=== PATIENT | female | born 1990 | race Caucasian/White ===

== ENCOUNTER 2017-04-12 15:25 | Emergency (ER) | payer OTHER ==
[2017-04-12 15:30] VITALS: BP 120/69; PULSE 107; TEMP 99.2; BMI 33.4
[2017-04-12] MEDS ORDERED: IBUPROFEN 400 MG TABLET (FP) PO ONE ×2 (16:28→16:29)
--- NOTE | 2017-04-12 16:34 | PDOC ---
History of Present Illness - General Chief Complaint: Sore Throat Stated Complaint: SORE THROAT AND PAIN Time Seen by Provider: 04/12/17 16:20 Exam Limitations: No Limitations - History of Present Illness Initial Comments: 04/12/17 16:31 27 yr female with 3 days sore throat no fever no cough or vomiting. no sick contacts. 04/12/17 17:07 Past History - Past Medical History Allergies/Adverse Reactions: Allergies Allergy/AdvReac Type Severity Reaction Status Date / Time No Known Allergies Allergy Verified 04/12/17 15:30 Home Medications: Ambulatory Orders NK [No Known Home Medication] 04/12/17 COPD: No Other medical history: NONE - Reproductive History (#): 1 Para: 0 Cervical CA: No Dysfunctional Uterine Bleeding: No Ectopic : No Endometrial CA: No Polycystic Ovaries: No Therapeutic (s) & number: No Tubal Ligation: No - Suicide/Smoking/Psychosocial Hx Smoking History: Never smoked Have you smoked in the past 12 months: No Hx Alcohol Use: Yes (SOCIAL) Drug/Substance Use Hx: No Substance Use Type: None Hx Substance Use Treatment: No Review of Systems - Review of Systems Able to Perform ROS?: Yes Is the patient limited Bengali proficient: No Constitutional: No: Symptoms Reported HEENTM: Yes: See HPI Respiratory: No: Symptoms reported Cardiac (ROS): No: Symptoms Reported ABD/GI: No: Symptoms Reported *Physical Exam - Vital Signs Last Vital Signs Temp Pulse Resp BP Pulse Ox 99.2 F 107 H 20 120/69 99 04/12/17 15:27 04/12/17 15:27 04/12/17 15:27 04/12/17 15:27 04/12/17 15:27 - Physical Exam General Appearance: Yes: Nourished, Appropriately Dressed HEENT: positive: EOMI, MARY JANE, TMs Normal, Tonsillar Exudate, Tonsillar Erythema Neck: negative: Tender, Lymphadenopathy (R), Lymphadenopathy (L), Rigidity, Tender lateral Respiratory/Chest: positive: Lungs Clear, Normal Breath Sounds Cardiovascular: positive: Regular Rhythm, Regular Rate Gastrointestinal/Abdominal: positive: Normal Bowel Sounds, Soft Extremity: positive: Normal Capillary Refill, Normal Inspection, Normal Range of Motion Integumentary: positive: Normal Color, Dry, Warm Neurologic: positive: Fully Oriented, Alert, Normal Mood/Affect, Normal Response , Motor Strength 5/5 Medical Decision Making - Medical Decision Making 04/12/17 16:33 cc: sore throat 4-5 days getting worse noticed white patches on tonsils no vomiting or cough will check for strep motrin for pain 04/12/17 17:01 negative strep rapid will watch for the throat culture , pt has no fever no lymphadenopathy at this time, left tonsil red with white patches. pt agrees with the plan of care and will follow with her PMD as needed, we will notify pt if the throat culture is positive. 04/12/17 17:08 *DC/Admit/Observation/Transfer Diagnosis at time of Disposition: Pharyngitis Qualifiers: Pharyngitis/tonsillitis etiology: unspecified etiology Qualified Code(s): J02.9 - Acute pharyngitis, unspecified - Discharge Dispostion Disposition: HOME Condition at time of disposition: Good - Referrals Referrals: Moon Mckenzie MD [Primary Care Provider] - - Patient Instructions Additional Instructions: gargle with warm salt water 4-5 times daily lemon or honey throat lozengers drink pleanty of fluids take ibuprofen 600-800mg every 6hrs for pain we will call you if the throat culture grows strep, however today the rapid strep is negative - Post Discharge Activity
== END 2017-04-12 17:04 | disposition home or self-care (01) ==
LOC: JERFT 15:25
DX: J02.9 Acute pharyngitis, unspecified (principal)
CPT/HCPCS: 87070; 87077; 87430; 99281-25

== ENCOUNTER 2017-10-26 09:04 | Inpatient (IN) | payer OTHER ==
[2017-10-26 09:56] LABS: URINE APPEARANCE SLCLOUDY; URINE BILIRUBIN NEGATIVE (<2.0 mg/dL); URINE COLOR YELLOW; URINE GLUCOSE (UA) NEGATIVE (NEGATIVE); URINE KETONE NEGATIVE (NEGATIVE); URINE NITRITE NEGATIVE (NEGATIVE); URINE PROTEIN NEGATIVE (NEGATIVE); URINE UROBILINOGEN NEGATIVE mg/dL (0.2-1.0)
[2017-10-26 10:04] LABS: HCG,QUALITATIVE URINE NEGATIVE
[2017-10-26 10:10] LABS: URINE LEUK ESTERASE 3+ (NEGATIVE)
[2017-10-26 10:22] LABS: EPI CELLS MODERATE /HPF (FEW); URINE MUCUS RARE
--- NOTE | 2017-10-26 10:29 | PDOC ---
History of Present Illness - General Chief Complaint: Pain Stated Complaint: CHEST PAIN, ABD PAIN Time Seen by Provider: 10/26/17 09:48 History Source: Patient - History of Present Illness Initial Comments: 10/26/17 10:41 Patient is a 27 year old female with no reported PMH who presents with abdominal pain. Intermittent sharp, roving pain that has been present for three months and has worsened over the last 2 days. Pain lasts for 2-3 minutes and symptoms are exacerbated by eating. Tolerating PO intake, no fevers, diarrhea, constipation. Denies dysuria, hematuria, increased urgency/ frequency but notes urine is dark yellow. Patient states she was evaluated at [facility] for the pain last month and was discharged with Motrin for pain. LMP was mid September 2017. NKDA Surgical: Lasik Social: denies nicotine, social alcohol, denies recreational drugs Past History - Past Medical History Allergies/Adverse Reactions: Allergies Allergy/AdvReac Type Severity Reaction Status Date / Time No Known Allergies Allergy Verified 10/26/17 09:07 Home Medications: Ambulatory Orders Acetaminophen Injection [Ofirmev Injection -] 1,000 mg IVPB Q6H PRN vial Ibuprofen Injection [Caldolor Injection -] 800 mg IVPB Q6H PRN ij 10/27/17 Ondansetron Injection [Zofran Injection] 4 mg IVPUSH Q6H PRN vial 10/27/17 Piperacillin/Tazob 4.5 gm [Zosyn -] 4.5 gm IVPB Q8H-IV vial 10/27/17 COPD: No - Reproductive History (#): 1 Para: 0 Cervical CA: No Dysfunctional Uterine Bleeding: No Ectopic : No Endometrial CA: No Polycystic Ovaries: No Therapeutic (s) & number: No Tubal Ligation: No - Immunization History Immunization Up to Date: Yes - Suicide/Smoking/Psychosocial Hx Smoking History: Never smoked Have you smoked in the past 12 months: No Hx Alcohol Use: Yes (SOCIAL) Drug/Substance Use Hx: No Substance Use Type: None Hx Substance Use Treatment: No Review of Systems - Review of Systems Constitutional: No: Chills, Fever Respiratory: No: Shortness of Breath Cardiac (ROS): No: Chest Pain, Lightheadedness, Palpitations, Syncope ABD/GI: Yes: Abdominal cramping. No: Constipated, Diarrhea, Nausea, Vomiting, Tarry Stools *Physical Exam - Vital Signs Last Vital Signs Temp Pulse Resp BP Pulse Ox 98.2 F 70 18 141/82 100 10/26/17 09:07 10/26/17 09:07 10/26/17 09:07 10/26/17 09:07 10/26/17 09:07 - Physical Exam General Appearance: Yes: Nourished, Obese Neck: positive: Trachea midline, Supple Respiratory/Chest: positive: Lungs Clear, Normal Breath Sounds Cardiovascular: positive: S1, S2. negative: JVD Gastrointestinal/Abdominal: positive: Normal Bowel Sounds, Other ((+) Arredondo's sign on PE and sonographically; RUQ TTP, epigastric TTP). negative: Hernia, Mass Musculoskeletal: negative: CVA Tenderness (R), CVA Tenderness (L) Integumentary: positive: Normal Color, Dry, Warm Neurologic: positive: Fully Oriented, Alert ED Treatment Course - LABORATORY CBC & Chemistry Diagram: 10/27/17 07:15 10/27/17 07:15 - ADDITIONAL ORDERS Additional order review: Laboratory Results 10/26/17 09:45 Urine Color Yellow Urine Appearance Slcloudy Urine pH 5.0 Ur Specific [place] 1.018 Urine Protein Negative Urine Glucose (UA) Negative Urine Ketones Negative Urine Blood Negative Urine Nitrite Negative Urine Bilirubin Negative Urine Urobilinogen Negative Ur Leukocyte Esterase 3+ H Urine WBC (Auto) 17 Urine RBC (Auto) 5 Ur Epithelial Cells Moderate Urine Mucus Rare Urine HCG, Qual Negative Medical Decision Making - Medical Decision Making 10/26/17 12:04 27 year old female presents with RUQ epigastric pain. Frontal diagnosis includes cholecystitis, biliary colic, UTI, gastritis, duodenal ulcer. Will obtain bedside U/S, CBC, CMP and administer fluids and GI cocktail. Bedside U/S showed multiple choleliths, dilated CBD. Normal sized kidneys, no hydronephrosis, non-distended bladder UA positive for 3+ Leukocyte esterase, 17 WBC. LFT's elevated (ALT 714, AST 222). Clinical suspicion for biliary tract obstruction. Case d/w General Surgery (Dr. Duran) will admit to her service for likely MRCP and cholecystectomy. Patient counseled on POC. Will continue IV fluids. *DC/Admit/Observation/Transfer Diagnosis at time of Disposition: Cholelithiasis - Discharge Dispostion Disposition: TRANSFER ACUTE CARE/OTHER HOSP Condition at time of disposition: Stable - Referrals - Patient Instructions - Post Discharge Activity
[2017-10-26 11:04] LABS: BASO % 0.6 % (0-2.0); EOS % 0.3 % (0-4.5); HEMATOCRIT 41.9 % (32.4-45.2); HEMOGLOBIN 13.9 GM/dL (10.7-15.3); LYMPH % 17.9 % (8-40); MCH 29.5 pg (25.7-33.7); MCHC 33.2 g/dl (32.0-36.0); MEAN CELL VOLUME 88.8 fl (80-96); MEAN PLT VOLUME 9.6 fl (7.5-11.1); MONO % 5.5 % (3.8-10.2); NEUT % 75.7 % (42.8-82.8); PLATELET COUNT 231 K/MM3 (134-434); RBC 4.72 M/mm3 (3.60-5.2); WHITE BLOOD COUNT 8.8 K/mm3 (4.0-10.0)
[2017-10-26 11:32] LABS: ALBUMIN 3.8 g/dl (3.4-5.0); ANION GAP 9 (8-16); BILIRUBIN,TOTAL 0.6 mg/dL (0.2-1.0); BLOOD UREA NITROGEN 8 mg/dL (7-18); CALCIUM 8.9 mg/dL (8.5-10.1); CHLORIDE 105 mmol/L (98-107); CO2 23 mmol/L (21-32); CREATININE 0.6 mg/dL (0.55-1.02); GLUCOSE,RANDOM 82 mg/dL (74-106); LIPASE 183 U/L (73-393); SODIUM 137 mmol/L (136-145); TOT PROT 7.5 g/dl (6.4-8.2)
[2017-10-26 11:33] LABS: ALK PHOS 218 U/L (45-117)
--- NOTE | 2017-10-26 11:54 | PDOC ---
Attending Attestation - Resident Resident Name: he he had - ED Attending Attestation I have performed the following: I have examined & evaluated the patient, The case was reviewed & discussed with the resident, I agree w/resident's findings & plan, Exceptions are as noted - HPI HPI: 10/26/17 11:46 27-year-old female no past medical history here today complaining of intermittent abdominal pain. Patient states symptoms are worse with eating describes epigastric and sometimes left upper quadrant pain also previously had some right upper quadrant pain. Pain is sharp and intermittent no assisted nausea vomiting no fevers no chills no urinary complaints. Since she does have a family history of a sister with gallstones has been having pain for 3 months but became more severe today - Physicial Exam PE: 10/26/17 11:58 Awake alert no acute distress. Lungs are clear bilaterally. Heart is regular without any murmurs rubs or gallops. Abdomen is soft mild epigastric tenderness no rebound no guarding negative Arredondo's negative CVA tenderness extremities are warm and well-perfused skin is warm and dry no rash neurologically patient is alert oriented 3 moves all extremities facies symmetric - Medical Decision Making 10/26/17 11:59 Differential diagnosis includes biliary colic gastritis duodenal ulcer or duodenitis pancreatitis UTI renal colic plan and basic labs LFTs lipase urinalysis UCG we'll perform a bedside ultrasound the gallbladder and kidneys to evaluate for hydronephrosis and/or gallstones treat patient with IV fluids and Pepcid and reassessment following 10/26/17 12:04 focused ED ultrasound RUQ, indication epigastric pain gb scanned in two planes using curvilinear probe. noted large stones in the fundus, multiple stones, largest measuring 1.5 cm. mobile no wall thickening or edema. negative sonographic arredondo's. no pericholecystic fluid CBD dilated at 7.0 mm proximally wall measured 1.2 mm impressions: dilated CBD, cholelithiasis. cirilli/ sarah focused ED ultrasound renal, indication: abdominal pain bilateral kidneys scanned in two planes. hyperechoic focus noted in right kindy cortex, possible stone. no hydronephrosis noted. right kidney measured 12.2 cm left kidney measured 10.5 cm bladder nondistended. impression: normal renal ultrasound. Heart Score/ECG Review #1 General ECG Interpretation: Sinus Rhythm, Normal Rate (50), Normal Intervals (e' ll of yet.), No acute ischemic changes
[2017-10-26 11:57] LABS: SGPT/ALT 714 U/L (12-78)
[2017-10-26 11:58] LABS: POTASSIUM 4.6 mmol/L (3.5-5.1); SGOT/AST 222 U/L (15-37)
[2017-10-26] MEDS ORDERED: FAMOTIDINE 20 MG/50 ML IVPB 20 MG/50 ML MG IVPB ONE ×2 (12:00→12:03)
[2017-10-26] MEDS ORDERED: SODIUM CHLORIDE 0.9% 1000 ML INFUS.BAG IV ONE (12:01)
[2017-10-26] MEDS: SODIUM CHLORIDE 1,000 ML IV SCH (13:09)
[2017-10-26 13:43] LABS: INR 1.12 (0.82-1.09); PROTHROMBIN TIME (PATIENT) 12.6 SEC (9.7-13.0)
[2017-10-26 13:45] LABS: ACTIVATED PTT 26.4 SECONDS (25.2-36.5)
--- NOTE | 2017-10-26 14:04 | HP ---
Admitting History and Physical - Primary Care Physician PCP: Moon Mckenzie - Admission Chief Complaint: upper abdominal pain, nausea History of Present Illness: 27yo obese but otherwise healthy F with h/o migraines and LASIK eye surgery presents with ~3month history of upper abdominal pain occurring mostly after fatty/greasy meals. It starts usually under left breast, radiates to epigastric area and around to right and also to her back, lasting minutes more often than not. She has had a few episodes that began in the RUQ, and Thursday had the worst pain yet lasting at least an hour. She has nausea associated but has not vomited, and her urine has been dark yellow lately. No constipation or diarrhea , no fever or chills, no jaundice. She was seen recently at [facility] ER about 3 weeks ago for similar pain, and they told her she had "inflammation" in her breastbone or upper abdomen, and advised Motrin prn. Motrin has helped at least once with the pain. Her sister recently had her gallbladder out and had what sounds like a retained stone requiring additional intervention at [facility]. In the ER, wbc is normal, she is afebrile, and LFTs are elevated but not bilirubin or lipase. US shows multiple stones in gallbladder without overt signs of cholecystitis, but cbd is dilated at 5mm (on formal US images)/7mm (on ER's bedside study). She is seen in the ER, able to ambulate, has not required pain medication, and has gotten IV fluids and famotidine. Last po was 8:30 pm last night and a sip of water this morning. 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 Loss Eyes: denies: Blurred Vision, Recent Change in Vision HENT: denies: Difficult Swallowing, Nasal Congestion, Throat Pain Neck: denies: Swollen Glands, Tenderness Cardiovascular: denies: Chest Pain (some radiation from epigastric pain but not primary chest pain), Palpitations Respiratory: reports: SOB (some difficulty with breathing secondary to pain in last few months). denies: Cough Gastrointestinal: reports: Abdominal Pain (with hpi), Nausea (with hpi). denies : Constipation, Diarrhea, Vomiting Genitourinary: denies: Burning, Dysuria Musculoskeletal: reports: Back Pain. denies: Joint Pain, Muscle Pain Integumentary: denies: Change in Color, Rash Neurological: reports: Headache (less with good water intake but prone to migraines). denies: Dizziness, Unsteady Gait Endocrine: denies: Unexplained Weight Gain, Unexplained Weight Loss Psychiatric: denies: Anxiety, Depression Physical Examination Vital Signs: Vital Signs Temperature 98.2 F 10/26/17 09:07 Pulse Rate 70 10/26/17 09:07 Respiratory Rate 18 10/26/17 09:07 Blood Pressure 141/82 10/26/17 09:07 O2 Sat by Pulse Oximetry (%) 100 10/26/17 09:07 Constitutional: Yes: No Distress, Calm, Obese Eyes: Yes: Conjunctiva Clear, EOM Intact. No: Sclera Icterus HENT: Yes: Atraumatic, Normocephalic Neck: Yes: Supple, Trachea Midline Cardiovascular: Yes: Regular Rate and Rhythm. No: Murmur Respiratory: Yes: Regular, CTA Bilaterally Gastrointestinal: Yes: Normal Bowel Sounds, Soft, Abdomen, Obese, Tenderness ( RUQ with Arredondo's, epigastric, less LUQ - no leslee/guard), Tenderness, Epigastrium. No: Tenderness, Rebound ...Rectal Exam: Yes: Deferred Renal/: Yes: CVA Tenderness - Left (mild), CVA Tenderness - Right (mild) Musculoskeletal: No: Back Pain (no direct tenderness), Joint Stiffness, Joint Swelling Extremities: No: Cool, Cyanosis Edema: No Peripheral Pulses WNL: Yes Integumentary: Yes: Tattoos. No: Jaundice, Rash Neurological: Yes: Alert, Oriented. No: Unsteady Gait Labs: CBC, BMP 10/26/17 10:50 10/26/17 10:50 CMP Sodium 137 mmol/L (136-145) 10/26/17 10:50 Potassium 4.6 mmol/L (3.5-5.1) 10/26/17 10:50 Chloride 105 mmol/L (98-107) 10/26/17 10:50 Carbon Dioxide 23 mmol/L (21-32) 10/26/17 10:50 Anion Gap 9 (8-16) 10/26/17 10:50 BUN 8 mg/dL (7-18) 10/26/17 10:50 Creatinine 0.6 mg/dL (0.55-1.02) 10/26/17 10:50 Creat Clearance w eGFR > 60 (>60) 10/26/17 10:50 Random Glucose 82 mg/dL (74-106) 10/26/17 10:50 Calcium 8.9 mg/dL (8.5-10.1) 10/26/17 10:50 Total Bilirubin 0.6 mg/dL (0.2-1.0) 10/26/17 10:50 AST 222 U/L (15-37) H 10/26/17 10:50 ALT 714 U/L (12-78) H 10/26/17 10:50 Alkaline Phosphatase 218 U/L (45-117) H 10/26/17 10:50 Total Protein 7.5 g/dl (6.4-8.2) 10/26/17 10:50 Albumin 3.8 g/dl (3.4-5.0) 10/26/17 10:50 Lipase 183 U/L (73-393) 10/26/17 10:50 INR, PTT INR 1.12 (0.82-1.09) 10/26/17 13:10 Urine Test Results Urine Color Yellow 10/26/17 09:45 Urine Appearance Slcloudy 10/26/17 09:45 Urine pH 5.0 (5.0-8.0) 10/26/17 09:45 Ur Specific [place] 1.018 (1.001-1.035) 10/26/17 09:45 Urine Protein Negative (NEGATIVE) 10/26/17 09:45 Urine Glucose (UA) Negative (NEGATIVE) 10/26/17 09:45 Urine Ketones Negative (NEGATIVE) 10/26/17 09:45 Urine Blood Negative (NEGATIVE) 10/26/17 09:45 Urine Nitrite Negative (NEGATIVE) 10/26/17 09:45 Urine Bilirubin Negative (<2.0 mg/dL) 10/26/17 09:45 Ur Leukocyte Esterase 3+ (NEGATIVE) H 10/26/17 09:45 Ur Epithelial Cells Moderate /HPF (FEW) 10/26/17 09:45 Urine Mucus Rare 10/26/17 09:45 Imaging - Results Ultrasound: Image Reviewed (images personally reviewed - multiple gallstones, wall thickness ~0.2cm, no pericholecystic fluid, cbd at least 5mm proximally) MRI: Pending Problem List - Problems (1) Calculus of gallbladder without cholecystitis without obstruction Assessment/Plan: biliary colic with elevated LFTs, possible chronic cholecystitis admit to surgery NPO/IVF pain meds prn, encourage nonnarcotics no antibiotics yet MRCP pending trend labs in am GI/DVT prophylaxis if MRCP positive - will consult GI for ERCP if not, if labs improved in am, recommend laparoscopic possible open cholecystectomy - Discussed with patient risks, benefits and alternatives of laparoscopic possible open cholecystectomy, including but not limited to bleeding, infection , injury to adjacent structures, bile leak or ductal injury, intraabdominal abscess, hernia, need for further procedures, ; alternatives include low- fat diet, delayed or no surgery - risks of this include recurrence of biliary colic, cholecystitis, pancreatitis, cholangitis. Patient agreeable to operation once cbd has been shown to be clear. Will plan possible OR for tomorrow pending MRCP results and labs in am. Informed consent signed for same. Perioperative antibiotics as indicated Pt anticipated to spend at least 2 midnights in hospital. Code(s): K80.20 - CALCULUS OF GALLBLADDER W/O CHOLECYSTITIS W/O OBSTRUCTION (2) Upper abdominal pain Code(s): R10.10 - UPPER ABDOMINAL PAIN, UNSPECIFIED (3) Nausea alone Code(s): R11.0 - NAUSEA (4) Obesity Code(s): E66.9 - OBESITY, UNSPECIFIED Qualifiers: Obesity type: due to excess calories Obesity classification: adult class 1 (BMI 30 - 34.9) Serious obesity comorbidity presence: without serious comorbidity Body mass index: BMI 32.0-32.9 Qualified Code(s): E66.09 - Other obesity due to excess calories; Z68.32 - Body mass index (BMI) 32.0-32.9, adult
[2017-10-26] MEDS ORDERED: ACETAMINOPHEN 325 MG TABLET (FP) PO PRN (14:20)
[2017-10-26] MEDS ORDERED: IBUPROFEN 400 MG TABLET (FP) PO PRN (14:20)
[2017-10-26] MEDS ORDERED: ONDANSETRON 4 MG/2 ML VIAL IVPUSH PRN (14:23)
[2017-10-26 17:04] VITALS: BMI 42.0
[2017-10-26] MEDS ORDERED: PIPERACILLIN/TAZOB 4.5 GM 4.5 GM in DEXTROSE 5%-WATER 100 ML IVPB SCH (20:30)
[2017-10-26] MEDS ORDERED: DEXTROSE 5%-WATER 100 ML IVPB ONE (21:12)
[2017-10-26] MEDS ORDERED: PIPERACILLIN/TAZOBACTAM 4.5 GM VIAL IVPB ONE (21:12)
[2017-10-26] MEDS: FAMOTIDINE 20 MG/50 ML IVPB 20 MG/50 ML MG IVPB SCH (21:24)
[2017-10-26] MEDS: PIPERACILLIN/TAZOB 4.5 GM 4.5 GM in DEXTROSE 5%-WATER 100 ML IVPB SCH (21:24)
[2017-10-27] MEDS: SODIUM CHLORIDE 1,000 ML IV SCH (00:27)
[2017-10-27] MEDS ORDERED: PIPERACILLIN/TAZOBACTAM 4.5 GM VIAL IVPB ONE ×2 (02:11→09:06)
[2017-10-27] MEDS ORDERED: DEXTROSE 5%-WATER 100 ML IVPB ONE ×2 (02:11→09:06)
[2017-10-27] MEDS: PIPERACILLIN/TAZOB 4.5 GM 4.5 GM in DEXTROSE 5%-WATER 100 ML IVPB SCH ×2 (02:19→09:11)
[2017-10-27 07:55] LABS: BASO % 0.4 % (0-2.0); EOS % 0.4 % (0-4.5); HEMATOCRIT 38.9 % (32.4-45.2); HEMOGLOBIN 13.1 GM/dL (10.7-15.3); MCH 29.9 pg (25.7-33.7); MCHC 33.8 g/dl (32.0-36.0); MEAN CELL VOLUME 88.3 fl (80-96); MEAN PLT VOLUME 9.5 fl (7.5-11.1); MONO % 5.8 % (3.8-10.2); NEUT % 64.4 % (42.8-82.8); PLATELET COUNT 194 K/MM3 (134-434); RDW 13.6 % (11.6-15.6); WHITE BLOOD COUNT 8.5 K/mm3 (4.0-10.0)
[2017-10-27 08:33] LABS: CHLORIDE 105 mmol/L (98-107); POTASSIUM 4.1 mmol/L (3.5-5.1); SODIUM 142 mmol/L (136-145)
--- NOTE | 2017-10-27 08:35 | CON.GI ---
Consult Consult Specialty:: Gastroenterology Referred by:: Dr. Zenaida Duran Reason for Consultation:: Abdominal pain - History of Present Illness Chief Complaint: Recurring abdominal pain History of Present Illness: 27F has been having left subcostal colicky pain for several weeks intermittently , typically triggered by fatty foods. She had a particularly severe episode on which resolved with Motrin. It recurred yesterday prompting her to come to the ER. Sonogram reveals GB stones and MRCP confirms CBD stones. Her mother and sister had GB surgeries. She denies liver disease and pancreatitis. 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 History of Recent Travel: No Home Medications - Allergies Allergies/Adverse Reactions: Allergies Allergy/AdvReac Type Severity Reaction Status Date / Time No Known Allergies Allergy Verified 10/26/17 09:07 - Home Medications Home Medications: Ambulatory Orders NK [No Known Home Medication] 04/12/17 Family Disease History - Family Disease History Family Disease History: Diabetes: Father (prostate camcer), Mother (recent CVA) , Heart Disease: Mother, CA: Father, Other: Mother, Sister (GB surgery) Review of Systems - Review of Systems Constitutional: reports: No Symptoms Eyes: reports: No Symptoms HENT: reports: No Symptoms Neck: reports: No Symptoms Cardiovascular: reports: No Symptoms Respiratory: reports: No Symptoms Gastrointestinal: reports: Abdominal Pain Musculoskeletal: reports: Back Pain Integumentary: reports: No Symptoms Neurological: reports: No Symptoms Endocrine: reports: No Symptoms Hematology/Lymphatic: reports: No Symptoms Physical Exam-GI Vital Signs: Vital Signs Temperature 97.6 F 10/27/17 05:54 Pulse Rate 65 10/27/17 05:54 Respiratory Rate 18 10/27/17 05:54 Blood Pressure 113/52 10/27/17 05:54 O2 Sat by Pulse Oximetry (%) 100 07/02/18 22:00 CBC,CMP WBC 8.5 K/mm3 (4.0-10.0) 10/27/17 07:15 RBC 4.40 M/mm3 (3.60-5.2) 10/27/17 07:15 Hgb 13.1 GM/dL (10.7-15.3) 10/27/17 07:15 Hct 38.9 % (32.4-45.2) 10/27/17 07:15 MCV 88.3 fl (80-96) 10/27/17 07:15 MCH 29.9 pg (25.7-33.7) 10/27/17 07:15 MCHC 33.8 g/dl (32.0-36.0) 10/27/17 07:15 RDW 13.6 % (11.6-15.6) 10/27/17 07:15 Plt Count 194 K/MM3 (134-434) 10/27/17 07:15 MPV 9.5 fl (7.5-11.1) 10/27/17 07:15 Absolute Neuts (auto) 5.5 # 10/27/17 07:15 Neutrophils % 64.4 % (42.8-82.8) 10/27/17 07:15 Lymphocytes % 29.0 % (8-40) D 10/27/17 07:15 Monocytes % 5.8 % (3.8-10.2) 10/27/17 07:15 Eosinophils % 0.4 % (0-4.5) 10/27/17 07:15 Basophils % 0.4 % (0-2.0) 10/27/17 07:15 Nucleated RBC % 0 % (0-0) 10/27/17 07:15 Sodium 142 mmol/L (136-145) 10/27/17 07:15 Potassium 4.1 mmol/L (3.5-5.1) 10/27/17 07:15 Chloride 105 mmol/L (98-107) 10/27/17 07:15 Carbon Dioxide 23 mmol/L (21-32) 10/27/17 07:15 Anion Gap 14 (8-16) 10/27/17 07:15 BUN 6 mg/dL (7-18) L 10/27/17 07:15 Creatinine 0.7 mg/dL (0.55-1.02) 10/27/17 07:15 Creat Clearance w eGFR > 60 (>60) 10/27/17 07:15 Random Glucose 68 mg/dL (74-106) L 10/27/17 07:15 Calcium 8.3 mg/dL (8.5-10.1) L 10/27/17 07:15 Total Bilirubin 0.9 mg/dL (0.2-1.0) 10/27/17 07:15 AST 94 U/L (15-37) H 10/27/17 07:15 ALT 467 U/L (12-78) H 10/27/17 07:15 Alkaline Phosphatase 169 U/L (45-117) H D 10/27/17 07:15 Total Protein 6.7 g/dl (6.4-8.2) 10/27/17 07:15 Albumin 3.4 g/dl (3.4-5.0) 10/27/17 07:15 Lipase 233 U/L (73-393) 10/27/17 07:15 Current Medications Generic Name Dose Route Start Last Admin Trade Name Freq PRN Reason Stop Dose Admin Acetaminophen 650 mg 10/26/17 14:20 Tylenol - PO Q6H PRN Pain Level 4 - 10 Sodium Chloride 1,000 mls @ 125 mls/hr 10/26/17 12:45 10/27/17 00:27 Normal Saline - IV 125 mls/hr ASDIR AGUILAR Administration Famotidine/Sodium Chloride 20 mg in 50 mls @ 100 mls/hr 10/26/17 22:00 21:24 Pepcid 20 Mg Premixed Ivpb - IVPB 100 mls/hr BID AGUILAR Administration Piperacillin Sod/Tazobactam 100 mls @ 200 mls/hr 10/26/17 21:15 10/27/17 02: 19 Sod 4.5 gm/ Dextrose IVPB 200 mls/hr Q8H-IV AGUILAR Administration Protocol Ibuprofen 400 mg 10/26/17 14:20 Motrin - PO Q6H PRN Pain Level 7 - 10 SECOND LINE Ondansetron HCl 4 mg 10/26/17 14:23 Zofran Injection IVPUSH Q6H PRN NAUSEA Constitutional: Yes: Well Nourished Eyes: Yes: Conjunctiva Clear HENT: Yes: Atraumatic Neck: Yes: Supple Cardiovascular: Yes: Regular Rate and Rhythm Respiratory: Yes: CTA Bilaterally ...Auscultate: Yes: Normoactive Bowel Sounds ...Palpate: Yes: Soft, Tenderness (mild epigastric tenderness) ...Rectal Exam: Yes: Deferred Edema: No Peripheral Pulses WNL: Yes Neurological: Yes: Alert, Oriented Labs: CBC, BMP 10/27/17 07:15 INR, PTT INR 1.12 (0.82-1.09) 10/26/17 13:10 Imaging - Results MRI: Report Reviewed (Tatyana Blake Name: PAULINA YEN DEPARTMENT OF RADIOLOGY Phys: Chidi Duran MD : 1990 Age: 27 Sex: F [facility] Acct: [id number] Loc: [id number] [facility] Exam Date: 10/26/17 Status: [place] [address] Unit Number: [id number] EXAM#: TYPE/EXAM: RESULT: [id number] MRI/ABDOMEN MRI W/O CONTRAST /MRCP MRI OF THE ABDOMEN WITHOUT IV GADOLINIUM WITH MRCP HISTORY: 27-year-old female with gallstones and increasing LFTs TECHNIQUE: Multiplanar multisequential MRI of the abdomen without the intravenous administration of contrast were performed on a high field 1.5 Vannesa GE magnet. Axial and coronal T2 fat-sat, axial T1 (in and out of phase), axial T2 FIESTA, axial T1 fat sat - LAVA without contrast in addition to coronal LAVA and axial diffusion weighted images were performed. Axial and coronal thin and thick slab 3 D MRCP was performed. No comparison MRI is available. Correlation is made with percent of the abdomen dated October 26, 2017. FINDINGS: The visualized lung bases inferior mediastinum are unremarkable. The liver is normal in size with no evidence of abnormal loss of signal on out of phase imaging to suggest fatty infiltration. There is no evidence of abnormal focal signal abnormality The spleen is normal in size with no evidence of focal abnormal signal. The pancreas is homogeneous in signal with no focal signal abnormality. The pancreatic duct is nondilated. The gallbladder is distended and filled with numerous stones. There is no abnormal gallbladder wall thickening or surrounding edema. There are numerous filling defects in the CBD but with no CBD dilatation. There is mild intrahepatic biliary ductal dilatation. The adrenal glands are unremarkable. There is no focal renal signal abnormality. There is no hydronephrosis. There is no evidence of abdominal lymphadenopathy or abdominal ascites. There is no evidence of abnormally dilated bowel loops. The visualized osseous structures are grossly unremarkable. IMPRESSION: Cholelithiasis and choledocholithiasis with no MRI evidence of cholecystitis. Reported By: Cristo Maxwell MD 06/14 Technologist: Benjamin Richardson Transcribed Date/Time: 1644 Cheese Grader: Cristo Maxwell Printed Date/Time: By: Signed by: Cristo Maxwell Signed on: 26-Oct-2017 16:46) Problem List - Problems (1) Calculus of gallbladder and bile duct w/o cholecystitis or obstruction Assessment/Plan: Paulina's pain is entirely consistent with biliary colic due to stones in the CBD. I have advised that she undergo an ERCP with sphincterotomy to extract the stones or place a stent if I can't remove them. I have informed her of the potential for such complications as perforation, hemorrhage and multiorgan failure that can arise as a result of ERCP induced pancreatitis. She has granted an informed consent. I will do it today and give an Indocin suppository to help protect against pancreatitis. I communicated with Dr Duran. Paulina understands that she will need a cholecystectomy and potentially a repeat ERCP. Code(s): K80.70 - CALCULUS OF GB AND BILE DUCT W/O CHOLECYST W/O OBSTRUCTION (2) Upper abdominal pain Code(s): R10.10 - UPPER ABDOMINAL PAIN, UNSPECIFIED
[2017-10-27 08:47] LABS: ALBUMIN 3.4 g/dl (3.4-5.0); ALK PHOS 169 U/L (45-117); ANION GAP 14 (8-16); BILIRUBIN,TOTAL 0.9 mg/dL (0.2-1.0); BLOOD UREA NITROGEN 6 mg/dL (7-18); CALCIUM 8.3 mg/dL (8.5-10.1); CO2 23 mmol/L (21-32); CREATININE 0.7 mg/dL (0.55-1.02); GLUCOSE,RANDOM 68 mg/dL (74-106); LIPASE 233 U/L (73-393); SGOT/AST 94 U/L (15-37); SGPT/ALT 467 U/L (12-78); TOT PROT 6.7 g/dl (6.4-8.2)
[2017-10-27] MEDS ORDERED: LACTATED RINGERS SOLUTION 1,000 ML/1,000 ML INFUS.BAG IV SCH ×3 (09:00→20:00)
[2017-10-27] MEDS: FAMOTIDINE 20 MG/50 ML IVPB 20 MG/50 ML MG IVPB SCH (09:10)
[2017-10-27 09:25] VITALS: TEMP 98.1
[2017-10-27] MEDS ORDERED: INDOMETHACIN 50 MG RECTAL SUPPOSITORY PR ONE (10:00)
[2017-10-27] MEDS ORDERED: LIDOCAINE HCL 2% (20ML MULTI-DOSE VIAL) NR ONE (11:23)
[2017-10-27] MEDS ORDERED: SUCCINYLCHOLINE CHLORIDE 200 MG/10 ML VIAL ONE (11:23)
[2017-10-27] MEDS ORDERED: PROPOFOL 20 ML ONE (11:23)
[2017-10-27] MEDS ORDERED: MIDAZOLAM HCL 2 MG/2 ML SINGLE DOSE VIAL ONE (11:24)
[2017-10-27] MEDS ORDERED: GLUCAGON 1 MG KIT ONE (12:33)
[2017-10-27] MEDS ORDERED: GLUCAGON 1 MG KIT IVPUSH ONE (12:34)
[2017-10-27] MEDS ORDERED: KETOROLAC TROMETHAMINE 30 MG/1 ML VIAL IVPUSH ONE (13:28)
--- NOTE | 2017-10-27 13:28 | PN ---
Progress Note (short form) - Note Progress Note: GI procedure note: please see scanned ERCP note. Attempts to cannulate common bile duct were unsuccessful despite attempting with a precut sphincterotomy. I've informed the patient of this and have proposed transfer to a tertiary care center, more specifically, to [facility] with Dr. Cj Leung. I have discussed the case with Dr. Leung who is agreeable to accept the patient in transfer, the patient also agrees. Discussed with Dr. Duran who is in agreement. Problem List - Problems (1) Calculus of gallbladder and bile duct w/o cholecystitis or obstruction Code(s): K80.70 - CALCULUS OF GB AND BILE DUCT W/O CHOLECYST W/O OBSTRUCTION (2) Upper abdominal pain Code(s): R10.10 - UPPER ABDOMINAL PAIN, UNSPECIFIED
[2017-10-27] MEDS ORDERED: HYDROmorphone HCL CARPU-JECT 2 MG/1 ML DISP.SYRIN IVPB PRN (13:30)
[2017-10-27 13:48] VITALS: BP 124/86; PULSE 80
--- NOTE | 2017-10-27 14:21 | DS ---
Physical Examination Vital Signs: Vital Signs Temperature 98.1 F 10/27/17 13:00 Pulse Rate 80 10/27/17 13:50 Respiratory Rate 15 10/27/17 13:50 Blood Pressure 124/86 10/27/17 13:50 O2 Sat by Pulse Oximetry (%) 100 10/27/17 13:50 Findings/Remarks: Pt seen and examined in endoscopy recovery, awake and tearful, nervous about need for transfer. She has multiple CBD stones by MRCP, and GI attempted ERCP this morning with multiple attempts but failed to cannulate bile duct successfully. Dr. Thompson has spoken with Dr. Leung at [facility], who accepts her in transfer for further attempts to clear CBD. Pt is in agreement, but is not sure if she will want to stay there for cholecystectomy after or return to [facility] for surgery once bile duct has been cleared. She is waiting on family to arrive to discuss. Prior to ERCP, she had no pain or nausea, was feeling okay. Post-procedure, she has a mild sore throat and some epigastric pain. Constitutional: Yes: No Distress, Anxious, Obese Eyes: Yes: Conjunctiva Clear, EOM Intact. No: Sclera Icterus HENT: Yes: Atraumatic, Normocephalic Neck: Yes: Supple, Trachea Midline Cardiovascular: Yes: Regular Rate and Rhythm. No: Murmur Respiratory: Yes: Regular, CTA Bilaterally Gastrointestinal: Yes: Normal Bowel Sounds, Soft, Abdomen, Obese, Tenderness, Epigastrium (mild). No: Tenderness, Rebound ...Rectal Exam: Yes: Deferred Musculoskeletal: No: Joint Stiffness, Joint Swelling Extremities: No: Cool, Cyanosis Integumentary: No: Jaundice, Rash Neurological: Yes: Alert, Oriented Labs: CBC, BMP 10/27/17 07:15 10/27/17 07:15 CMP Sodium 142 mmol/L (136-145) 10/27/17 07:15 Potassium 4.1 mmol/L (3.5-5.1) 10/27/17 07:15 Chloride 105 mmol/L (98-107) 10/27/17 07:15 Carbon Dioxide 23 mmol/L (21-32) 10/27/17 07:15 Anion Gap 14 (8-16) 10/27/17 07:15 BUN 6 mg/dL (7-18) L 10/27/17 07:15 Creatinine 0.7 mg/dL (0.55-1.02) 10/27/17 07:15 Creat Clearance w eGFR > 60 (>60) 10/27/17 07:15 Random Glucose 68 mg/dL (74-106) L 10/27/17 07:15 Calcium 8.3 mg/dL (8.5-10.1) L 10/27/17 07:15 Total Bilirubin 0.9 mg/dL (0.2-1.0) 10/27/17 07:15 AST 94 U/L (15-37) H 10/27/17 07:15 ALT 467 U/L (12-78) H 10/27/17 07:15 Alkaline Phosphatase 169 U/L (45-117) H D 10/27/17 07:15 Total Protein 6.7 g/dl (6.4-8.2) 10/27/17 07:15 Albumin 3.4 g/dl (3.4-5.0) 10/27/17 07:15 Lipase 233 U/L (73-393) 10/27/17 07:15 LFTs coming down some, lipase up a bit but still in normal range, wbc normal Discharge Summary Reason For Visit: symptomatic cholelithiasis, choledocholithiasis Current Active Problems Calculus of gallbladder and bile duct w/o cholecystitis or obstruction (Acute) Nausea alone (Acute) Obesity (Acute) Upper abdominal pain (Acute) Procedures: Principal: ERCP with failure to cannulate bile duct Hospital Course: 27yo obese F with no significant medical history, admitted to surgical service through ER for symptomatic cholelithiasis (months worth of intermittent pain), last seen in ER in May for similar symptoms but did not follow up with surgeon outpatient. In ER, she was afebrile with normal wbc, lipase and LFTs were elevated except for bilirubin. US showed multiple gallstones and dilated CBD; MRCP then showed multiple CBD stones, but neither suggested acute cholecystitis. She was NPO and given IV fluids. Antibiotics were started only after MRCP results, and GI took her for ERCP this morning, but was unable to cannulate bile duct after multiple attempts. Dr. Thompson spoke with Dr. Cj Leung at [facility], who agreed to take her in transfer for further GI intervention to clear her duct. She is stable post-procedure, awake and alert, but anxious about need for transfer. She is medically stable for transfer to [facility], going to bed [facility] [id number]. Once duct is cleared, Dr. Duran is willing to take her back to [facility] for laparoscopic possible open cholecystectomy , if patient so desires. Time spent on discharge: 45 minutes Condition: Stable - Instructions Diet, Activity, Other Instructions: You were treated with antibiotics, IV fluids and bowel rest for symptomatic gallstones and common bile duct stones. ERCP was attempted by Dr. Thompson from , but he was unable to access the bile duct to remove the stones. You are being transferred to [facility], for Dr. Cj Leung () to pursue interventions to clear the bile duct prior to recommended laparoscopic possible open cholecystectomy. If you return to [facility] for surgery after your bile duct is cleared, Dr. Chidi Duran of [facility] will readmit you and proceed with treatment. You will need to follow up with Dr. Mckenzie, your primary doctor, within 1-2 weeks of your ultimate discharge from the hospital. Make sure to call for all appointments as directed. Referrals: Moon Mckenzie MD [Primary Care Provider] - Disposition: TRANSFER ACUTE CARE/OTHER HOSP - Home Medications Comprehensive Discharge Medication List: Ambulatory Orders NK [No Known Home Medication] 04/12/17 Hospital Medications Medication Instructions Recorded Acetaminophen Injection [Ofirmev 1,000 mg IVPB Q6H PRN vial 10/27/17 Injection -] Ibuprofen Injection [Caldolor 800 mg IVPB Q6H PRN ij 10/27/17 Injection -] Ondansetron Injection [Zofran 4 mg IVPUSH Q6H PRN vial 10/27/17 Injection] Piperacillin/Tazob 4.5 gm [Zosyn -] 4.5 gm IVPB Q8H-IV vial due at 6p, 2a, 10a 10/27/17 Lactated Ringers Solution 1,000 ml IV ASDIR infus.bag at 150ml/hr 10/27/17 ALSO: Famotidine 20mg IVPB BID
--- NOTE | 2017-10-27 14:31 | CON.ID ---
Consult Consult Specialty:: infectious diseases Referred by:: dr lua Reason for Consultation:: choleycystitis,cbd stone - History of Present Illness Chief Complaint: abd pain History of Present Illness: 27yo obese but otherwise healthy F with h/o migraines and LASIK eye surgery presents admitted because with ~3month history of upper abdominal pain occurring mostly after fatty/greasy meals. It starts usually under left breast, radiates to epigastric area and around to right and also to her back, lasting minutes more often than not. 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 Hepatobiliary: Yes: Cholelithiasis, Choledocholithiasis ...LMP: 10/10/17 ...: No Musculoskeletal: Yes: Chronic low back pain - Past Surgical History Past Surgical History: Yes: None - Alcohol/Substance Use Hx Alcohol Use: Yes (SOCIAL) History of Substance Use: reports: None - Smoking History Smoking history: Never smoked Have you smoked in the past 12 months: No - Social History ADL: Independent 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 History of Recent Travel: No Home Medications - Allergies Allergies/Adverse Reactions: Allergies Allergy/AdvReac Type Severity Reaction Status Date / Time No Known Allergies Allergy Verified 10/26/17 09:07 - Home Medications Home Medications: Ambulatory Orders Acetaminophen Injection [Ofirmev Injection -] 1,000 mg IVPB Q6H PRN vial Ibuprofen Injection [Caldolor Injection -] 800 mg IVPB Q6H PRN ij 10/27/17 Ondansetron Injection [Zofran Injection] 4 mg IVPUSH Q6H PRN vial 10/27/17 Piperacillin/Tazob 4.5 gm [Zosyn -] 4.5 gm IVPB Q8H-IV vial 10/27/17 Family Disease History - Family Disease History Family Disease History: Diabetes: Father (prostate camcer), Mother (recent CVA) , Heart Disease: Mother, CA: Father, Other: Mother, Sister (GB surgery) Review of Systems - Review of Systems Constitutional: reports: No Symptoms Eyes: reports: No Symptoms HENT: reports: No Symptoms Neck: reports: No Symptoms Cardiovascular: reports: No Symptoms Respiratory: reports: No Symptoms Gastrointestinal: reports: Abdominal Pain Genitourinary: reports: No Symptoms Neurological: reports: No Symptoms Endocrine: reports: No Symptoms Hematology/Lymphatic: reports: No Symptoms Psychiatric: reports: No Symptoms Physical Exam Vital Signs: Vital Signs Temperature 98.1 F 10/27/17 13:00 Pulse Rate 80 10/27/17 13:50 Respiratory Rate 15 10/27/17 13:50 Blood Pressure 124/86 10/27/17 13:50 O2 Sat by Pulse Oximetry (%) 100 10/27/17 13:50 Constitutional: Yes: Well Nourished, No Distress, Calm, Obese Eyes: Yes: Conjunctiva Clear HENT: Yes: Atraumatic, Normocephalic Neck: Yes: Supple, Trachea Midline Cardiovascular: Yes: Regular Rate and Rhythm Respiratory: Yes: Regular, CTA Bilaterally Musculoskeletal: Yes: WNL Extremities: Yes: WNL Neurological: Yes: Alert, Oriented Psychiatric: Yes: Alert, Oriented Labs: CBC, BMP 10/27/17 07:15 10/27/17 07:15 Imaging - Results Chest X-ray: Report Reviewed, Image Reviewed Ultrasound: Report Reviewed, Image Reviewed MRI: Report Reviewed, Image Reviewed Assessment/Plan Problem List - Problems (1) Calculus of gallbladder without cholecystitis without obstruction Code(s): K80.20 - CALCULUS OF GALLBLADDER W/O CHOLECYSTITIS W/O OBSTRUCTION (2) Upper abdominal pain Code(s): R10.10 - UPPER ABDOMINAL PAIN, UNSPECIFIED (3) Nausea alone Code(s): R11.0 - NAUSEA (4) Obesity Code(s): E66.9 - OBESITY, UNSPECIFIED Qualifiers: Obesity type: due to excess calories Obesity classification: adult class 1 (BMI 30 - 34.9) Serious obesity comorbidity presence: without serious comorbidity Body mass index: BMI 32.0-32.9 Qualified Code(s): E66.09 - Other obesity due to excess calories; Z68.32 - Body mass index (BMI) 32.0-32.9, adult plan patient to be transferred to tertiary care continue abx rest as per the surgical team close monitoring
[2017-10-27] MEDS ORDERED: ACETAMINOPHEN 1000 MG/100 ML VIAL (NON FORMULARY) IVPB PRN (14:39)
[2017-10-27] MEDS ORDERED: IBUPROFEN 800 MG/8 ML IJ IVPB PRN (20:00)
[2017-10-28] MEDS ORDERED: LACTATED RINGERS SOLUTION 1,000 ML/1,000 ML INFUS.BAG IV SCH (02:00)
--- NOTE | 2017-11-02 15:05 | EKG ---
Test Reason : Blood Pressure : / mmHG Vent. Rate : 050 BPM Atrial Rate : 050 BPM P-R Int : 142 ms QRS Dur : 086 ms QT Int : 432 ms P-R-T Axes : 039 011 015 degrees QTc Int : 393 ms SINUS BRADYCARDIA OTHERWISE NORMAL ECG WHEN COMPARED WITH ECG OF 07-DEC-2015 10:11, VENT. RATE HAS DECREASED BY 31 BPM Confirmed by FÁTIMA SALAS MD ([id number]) on 11/02/2017 3:04:59 PM Referred By: Confirmed By:FÁTIMA SALAS MD
== END 2017-10-27 16:19 | disposition short-term general hospital (02) ==
LOC: JER 09:04 → JERBED 13:39 → J6S 15:52
PROVIDERS: ADMIT Surgery; ATTEND Surgery
PROC: BF13YZZ Fluoroscopy of Gallbladder and Bile Ducts using Other Contrast (ICD-10-PCS; 2017-10-27)
PROC: 0F7C8ZZ Dilation of Ampulla of Vater, Via Natural or Artificial Opening Endoscopic (ICD-10-PCS; principal; 2017-10-27 10:00)
DX: K80.70 Calculus of gallbladder and bile duct without cholecystitis without obstruction (principal); Z68.41 Body mass index [BMI] 40.0-44.9, adult; E66.9 Obesity, unspecified; G43.909 Migraine, unspecified, not intractable, without status migrainosus; R11.0 Nausea
CPT/HCPCS: 36415; 74181-TC; 76000-TC-FY; 76705-TC; 76775-TC; 80053; 81003; 81015; 83690; 84703; 85025; 85610; 85730; 86850; 86900; 86901; 87086; 93005; 93010; 94010; 99282-25; J0131; J7030

== ENCOUNTER 2021-10-10 16:13 | Emergency (ER) | payer OTHER ==
[2021-10-10 16:19] VITALS: BP 124/80; PULSE 97; TEMP 99; BMI 34.9
== END 2021-10-10 17:50 | disposition home or self-care (01) ==
LOC: FER 16:13
DX: R07.9 Chest pain, unspecified (principal)
CPT/HCPCS: 71046-TC-FY; 93005; 99284-25

== ENCOUNTER 2022-12-09 14:36 | Emergency (ER) | payer OTHER ==
[2022-12-09 15:00] VITALS: BP 137/103; PULSE 83; RESP 20; TEMP 98; BMI 36.5
[2022-12-09] MEDS ORDERED: ACETAMINOPHEN 325 MG TABLET (FP) PO ONE (15:16)
[2022-12-09] MEDS ORDERED: MECLIZINE HCL 25 MG TABLET (FP) PO ONE (15:16)
[2022-12-09] MEDS ORDERED: ACETAMINOPHEN 325 MG TABLET (FP) ONE (15:20)
[2022-12-09] MEDS ORDERED: MECLIZINE HCL 25 MG TABLET (FP) ONE (15:21)
[2022-12-09 16:20] LABS: HCG,QUALITATIVE URINE Negative
[2022-12-09 16:56] LABS: EPITHELIAL CELLS FEW /hpf
== END 2022-12-09 16:42 | disposition home or self-care (01) ==
LOC: FER 14:36
DX: R42 Dizziness and giddiness (principal); R51.9 Headache, unspecified; R11.0 Nausea
CPT/HCPCS: 81003; 81015; 82962; 84703; 87086; 93005; 99284-25